=== PATIENT | male | born 1950 | race Caucasian/White ===

== ENCOUNTER 2020-07-17 08:46 | Observation (INO) | payer MEDICARE ==
[~2020-07-17] VITALS: Ht 175.3 cm; Wt 59.7 kg
[2020-07-17] MEDS ORDERED: SODIUM CHLORIDE 0.9% 1,000 ML IV SCH (09:00)
[2020-07-17] MEDS ORDERED: VALS160T3 PO (09:22)
[2020-07-17] MEDS ORDERED: ASPI325T17 PO (09:23)
[2020-07-17] MEDS ORDERED: SOTA80TA PO (09:25)
[2020-07-17 09:28] VITALS: BP 132/81
[2020-07-17] MEDS ORDERED: ISOPROTERENOL 0.2MG/ML, 5ML ONE (11:19)
[2020-07-17] MEDS ORDERED: ADENOSINE 6 MG/2 ML ONE (11:19)
[2020-07-17] MEDS ORDERED: LIDOCAINE 2%, 20ML ONE ×2 (11:19→11:40)
[2020-07-17] MEDS ORDERED: MIDAZOLAM 1 MG/ML, 2ML ONE (11:22)
[2020-07-17] MEDS ORDERED: FENTANYL PF 100 MCG/2ML ONE (11:23)
[2020-07-17 11:25] LABS: BASOPHILS % (AUTO) 1 % (0-1); EOSINOPHILS % (AUTO) 2 % (1-7); INTERNATIONAL NORMALIZED RATIO 1.03 (0.93-1.1); LYMPHOCYTES % (AUTO) 14 % (22-44); MEAN CORPUSCULAR HEMOGLOBIN 30.2 pg (27.5-34.5); MEAN CORPUSCULAR HGB CONC 33.6 g/dL (33.2-36.2); MEAN PLATELET VOLUME 7.7 fL (7.4-10.4); MONOCYTES % (AUTO) 8 % (2-9); NEUTROPHILS % (AUTO) 75 % (42-75); PLATELET COUNT 332 x10^3/uL (130-400); PROTHROMBIN TIME 10.9 Seconds (9.6-11.5); RED BLOOD COUNT 4.68 x10^6/uL (4.38-5.82); RED CELL DISTRIBUTION WIDTH 12.9 % (9.4-14.8)
[2020-07-17 11:27] LABS: ANION GAP 3 mmol/L (5-15); CALCIUM 9.4 mg/dL (8.5-10.1); CHLORIDE 106 mmol/L (98-107); CREATININE 1.16 mg/dL (0.7-1.3)
[2020-07-17 11:32] LABS: MD NO
[2020-07-17] MEDS ORDERED: OMNIPAQUE 350 MG/ML, 75ML BOTTLE ONE (15:05)
[2020-07-17] MEDS ORDERED: ONDANSETRON 2MG/ML, 2ML IVPush PRN (16:30)
[2020-07-17] MEDS ORDERED: ACETAMINOPHEN 325 MG TABLET PO PRN (16:30)
[2020-07-17] MEDS: RIVAROXABAN 15 MG TABLET PO SCH (17:23)
[2020-07-17 18:23] VITALS: BP 146/87
[2020-07-17] MEDS ORDERED: VALSARTAN 160 MG TABLET PO SCH (22:30)
[2020-07-18 01:05] VITALS: BP 128/74
[2020-07-18 07:58] VITALS: BP 138/80
[2020-07-18] MEDS ORDERED: RIVA15TA PO (08:25)
[2020-07-18] MEDS ORDERED: RIVA20TA PO (08:25)
[2020-07-18] MEDS ORDERED: VALSARTAN 160 MG TABLET PO SCH (09:00)
[2020-07-18] MEDS: RIVAROXABAN 15 MG TABLET PO SCH (09:13)
== END 2020-07-18 12:50 | disposition home or self-care (01) ==
LOC: CACL 08:46 → ORIP 16:30 → 5SO 17:08 → DCLOUNGE 07-18 12:39
PROVIDERS: ADMIT Internal Medicine Clinical Cardiac Electrophysiology; ATTEND Internal Medicine Clinical Cardiac Electrophysiology
DX: I47.1 Supraventricular tachycardia (principal); Z20.828 Contact with and (suspected) exposure to other viral communicable diseases; I10 Essential (primary) hypertension; E78.5 Hyperlipidemia, unspecified; Z79.82 Long term (current) use of aspirin; Z79.899 Other long term (current) drug therapy
CPT/HCPCS: 36415; 71046; 71275; 80048; 85025; 85610; 87635; 93005; 93613; 93623; 93653; 99156; 99157; C1730; C1766; C1894; C2630; G0378; J2250; J3010; J3490; Q9967; J0153